=== PATIENT | female | born 1985 | race Caucasian/White ===

== ENCOUNTER 2016-10-09 21:47 | Emergency (ER) | payer OTHER ==
[~2016-10-09] VITALS: Ht 162.6 cm; Wt 59.9 kg
[~2016-10-09 21:47] MED LIST: FLEXERIL10 MG PO; MICRONOR0.35 MG PO; MOTRIN600 MG PO; Motrin PO; PERCOCET 5/31 TABLET PO; PROZAC20 MG PO; Percocet 5/325,Endoc PO; ZOLOFT25 MG PO
[2016-10-09] MEDS ORDERED: NORCO 5/3251 TABLET PO (23:02)
[2016-10-09] MEDS ORDERED: MOTRIN800 MG PO (23:02)
[2016-10-09 23:19] VITALS: BP 122/75
== END 2016-10-09 23:22 | disposition home or self-care (01) ==
LOC: EME 21:47 → RME 21:47
DX: S90.122A Contusion of left lesser toe(s) without damage to nail, initial encounter (principal); S93.505A Unspecified sprain of left lesser toe(s), initial encounter; W23.0XXA Caught, crushed, jammed, or pinched between moving objects, initial encounter; Z88.0 Allergy status to penicillin
CPT/HCPCS: 73660; 99281; 99283

== ENCOUNTER → 2018-03-13 | Outpatient (CLI) | payer OTHER ==
[~2018-03-13] VITALS: Ht 162.6 cm; Wt 69.0 kg
[~2018-03-13] MED LIST changes: +CYMBALTA20 MG PO; +MOTRIN800 MG PO; +NORCO 5/3251 TABLET PO; +PRENATAL TABLE1 EAC3 PO; +ZYRTEC5 MG PO
[2018-03-13 10:34] VITALS: BP 119/56
== END | disposition home or self-care (01) ==
LOC: IVINF 10:26
DX: Z34.83 Encounter for supervision of other normal pregnancy, third trimester (principal); Z31.82 Encounter for Rh incompatibility status; Z3A.28 28 weeks gestation of pregnancy; Z67.41 Type O blood, Rh negative
CPT/HCPCS: 96372; J2790